=== PATIENT | male | born 1940 | race Caucasian/White ===

== ENCOUNTER → 2018-06-09 | Outpatient (CLI) | payer MEDICARE, BC ==
[~2018-06-09] MED LIST: ASPIRIN EC81 M1 PO; CARVEDILOL12.5 MG PO; CO Q-10100 MG PO; CORDARONE PO; COREG PO; DEMADEX20 MG PO; FUROSEMIDE PO; IBUPROFEN200 M2 PO; KLOR-CON 10 ER10 MEQ PO; KLOR-CON PO; LEVEMIR SUBQ; LIPITOR PO; LISINOPRIL PO; METFORMIN HCL500 MG PO; MEXILETINE 150150 MG PO; PACERONE 200 M200 M1 PO; PLAVIX 75 MG TA75 MG PO; PRINIVIL5 MG PO; VITAMIN D-32000 UNIT PO
--- NOTE | 2018-06-09 17:14 | 2DMMODE ---
[place] [address] 2 D/M-MODE ECHOCARDIOGRAM Name: KASIE NESS Room: [facility]#: [id number] Admission: 06/09/18 Attend Phys: Mati Dela Cruz, Discharge: Date of : 44 Date of Service: 06/09/18 1714 Report #: [id number] THIS REPORT FOR: //name// APPROVED REPORT Study performed: 06/09/2018 13:59:03 EXAM: Comprehensive 2D, Doppler, and color-flow Echocardiogram Patient Location: Out-Patient Status: routine BSA: 2.15 HR: 90 bpm BP: 105/60 mmHg Other Information Study Quality: Good Indications Congestive Heart Failure 2D Dimensions IVSd: 10.37 (7-11mm) LVOT Diam: 20.02 (18-24mm) LVDd: 56.06 mm PWd: 9.94 (7-11mm) Ascending Ao: 33.68 (22-36mm) LVDs: 40.21 (25-40mm) Aortic Root: 35.25 mm Volumes Left Atrial Volume (Systole) LA ESV Index: 22.00 mL/m2 Aortic Valve AoV Peak Refugio.: 1.03 m/s AO Peak Gr.: 4.22 mmHg LVOT Max P.61 mmHg AO Mean Gr.: 2.31 mmHg LVOT Mean P.78 mmHg LVOT Max V: 0.63 m/s AO V2 VTI: 17.79 cm LVOT Mean V: 0.40 m/s CARMEN (VTI): 2.19 cm2 LVOT V1 VTI: 12.35 cm Mitral Valve E/A Ratio: 0.80 MV Decel. Time: 242.42 ms MV E Max Refugio.: 0.65 m/s MV PHT: 70.30 [place] [address] 2 D/M-MODE ECHOCARDIOGRAM Name: KASIE NESS Room: [facility]#: [id number] Admission: 06/09/18 Attend Phys: Mati Dela Cruz, Discharge: Date of : 44 Date of Service: 06/09/18 1714 Report #: [id number] MVA (PHT): 3.13 cm2 TDI E/Lateral E': 10.83 E/Medial E': 13.00 Medial E' Refugio.: 0.05 m/s Lateral E' Refugio.: 0.06 m/s Pulmonary Valve PV Peak Refugio.: 0.82 m/s PV Peak Gr.: 2.70 mmHg Tricuspid Valve RAP Estimate: 5.00 mmHg TR Peak Gr.: 29.98 mmHg RVSP: 34.98 mmHg PA Pressure: 34.98 mmHg Left Ventricle Left ventricle is mildly dilated. There are segmental wall motion abnormalities with distal septal anterolateral and apical akinesis. There is normal left ventricular wall thickness. Left ventricular systolic function is severely decreased. LVEF is 25-30%. Grade I - abnormal relaxation pattern. Right Ventricle The right ventricle is normal size. The right ventricular systolic function is normal. Device lead is present in the right ventricle. Atria The left atrium size is normal. Pacemaker lead is present in the right atrium. Aortic Valve The aortic valve is normal in structure. No aortic regurgitation is present. There is no aortic valvular stenosis. Mitral Valve There is mitral annular calcification. Mild mitral regurgitation. No evidence of mitral valve stenosis. Tricuspid Valve The tricuspid valve is normal in structure. Mild tricuspid regurgitation. Pulmonic Valve The pulmonary valve is normal in structure. There is no pulmonic [place] [address] 2 D/M-MODE ECHOCARDIOGRAM Name: KASIE NESS Room: [facility]#: [id number] Admission: 06/09/18 Attend Phys: Mati Dela Cruz, Discharge: Date of : 44 Date of Service: 06/09/18 1714 Report #: [id number] Great Vessels The aortic root is normal in size. IVC is normal in size and collapses >50% with inspiration. Pericardium There is no pericardial effusion. <Conclusion> Left ventricle is mildly dilated. There is normal left ventricular wall thickness. Left ventricular systolic function is severely decreased. LVEF is 25-30%. Grade I - abnormal relaxation pattern. The right ventricle is normal size. The left atrium size is normal. The aortic valve is normal in structure. There is mitral annular calcification. Mild mitral regurgitation. No evidence of mitral valve stenosis. The tricuspid valve is normal in structure. Mild tricuspid regurgitation. There is no pericardial effusion. There are segmental wall motion abnormalities with distal septal anterolateral and apical akinesis. Device lead is present in the right ventricle. <ELECTRONICALLY SIGNED> By: Ronald Burnette MD, FACC 06/09/181713 13 13 Ronald Burnette MD, FACC /INF
== END ==
LOC: M.CRD 06-02 15:00
DX: I08.1 Rheumatic disorders of both mitral and tricuspid valves (principal); I50.22 Chronic systolic (congestive) heart failure